=== PATIENT | male | born 1990 | race African-American/Black ===

== ENCOUNTER 2020-10-20 22:50 | Emergency (ER) | payer MEDICAID ==
[~2020-10-20] VITALS: Ht 182.9 cm; Wt 95.5 kg
[~2020-10-20 22:50] MED LIST: DSS100 PO; FERR1TAB45 PO; OMEP10 PO; SUCR1TAB28 PO
[2020-10-20 22:58] VITALS: BP 136/80
== END 2020-10-20 23:20 | disposition home or self-care (01) ==
LOC: EMS 22:50
DX: K94.03 Colostomy malfunction (principal)
CPT/HCPCS: 99281; Z7502

== ENCOUNTER 2021-06-15 23:20 | Emergency (ER) | payer MEDICAID ==
[~2021-06-15] VITALS: Ht 180.3 cm; Wt 84.0 kg
[2021-06-15 23:23] VITALS: BP 116/67
== END 2021-06-15 23:30 | disposition left against medical advice (07) ==
LOC: EMS 23:22
DX: Z53.21 Procedure and treatment not carried out due to patient leaving prior to being seen by health care provider (principal)

== ENCOUNTER 2021-09-19 23:19 | Emergency (ER) | payer MEDICAID ==
[~2021-09-19] VITALS: Ht 188 cm; Wt 88.0 kg
[2021-09-20 00:12] VITALS: BP 142/70
== END 2021-09-20 03:59 | disposition home or self-care (01) ==
LOC: EMS 23:20
DX: Z43.3 Encounter for attention to colostomy (principal); F17.210 Nicotine dependence, cigarettes, uncomplicated
CPT/HCPCS: 99281; Z7502

== ENCOUNTER 2021-11-11 02:07 | Emergency (ER) | payer MEDICAID ==
[~2021-11-11] VITALS: Ht 185.4 cm; Wt 79.5 kg
[2021-11-11 02:10] VITALS: BP 116/68
== END 2021-11-11 04:53 | disposition left against medical advice (07) ==
LOC: EMS 02:09
DX: R04.0 Epistaxis (principal); F17.210 Nicotine dependence, cigarettes, uncomplicated
CPT/HCPCS: 99281; Z7502

== ENCOUNTER 2022-04-05 20:07 | Emergency (ER) | payer MEDICAID ==
[~2022-04-05] VITALS: Ht 182.9 cm; Wt 68.2 kg
[2022-04-05 20:09] VITALS: BP 159/62
== END 2022-04-05 21:40 | disposition home or self-care (01) ==
LOC: EMS 20:10
DX: Z43.3 Encounter for attention to colostomy (principal)
CPT/HCPCS: 99281; Z7502

== ENCOUNTER 2023-03-03 18:15 | Emergency (ER) | payer MEDICAID, OTHER ==
[~2023-03-03] VITALS: Ht 183.5 cm; Wt 85.0 kg
[2023-03-03 18:29] VITALS: BP 148/70
== END 2023-03-03 19:52 | disposition home or self-care (01) ==
LOC: EMS 18:16
DX: K94.03 Colostomy malfunction (principal); D66 Hereditary factor VIII deficiency; F17.210 Nicotine dependence, cigarettes, uncomplicated
CPT/HCPCS: 99281; Z7502

== ENCOUNTER 2023-03-12 15:46 | Emergency (ER) | payer OTHER ==
[~2023-03-12] VITALS: Ht 182.9 cm; Wt 85.0 kg
[2023-03-12 15:49] VITALS: BP 122/69; PULSE 87; RESP 18; TEMP 98
== END 2023-03-12 17:07 | disposition home or self-care (01) ==
LOC: EMS 15:49
DX: Z43.3 Encounter for attention to colostomy (principal); D66 Hereditary factor VIII deficiency; F17.210 Nicotine dependence, cigarettes, uncomplicated
CPT/HCPCS: 99281; Z7502